=== PATIENT | female | born 1995 | race African-American/Black ===

== ENCOUNTER → 2020-09-12 | Outpatient (CLI) | payer OTHER | END | disposition home or self-care (01) | LOC: PRENATAL 10:57 | PROVIDERS: ATTEND Obstetrics & Gynecology Maternal & Fetal Medicine | DX: O35.0XX1 Maternal care for (suspected) central nervous system malformation in fetus, fetus 1 (principal); O35.3XX1 Maternal care for (suspected) damage to fetus from viral disease in mother, fetus 1; O98.512 Other viral diseases complicating pregnancy, second trimester; Z36.89 Encounter for other specified antenatal screening; Z3A.21 21 weeks gestation of pregnancy ==

== ENCOUNTER → 2020-12-25 | Outpatient (CLI) | payer OTHER | END | disposition home or self-care (01) | LOC: NST 17:08 | PROVIDERS: ATTEND Specialist | DX: Z34.83 Encounter for supervision of other normal pregnancy, third trimester (principal) ==

== ENCOUNTER 2021-01-25 12:45 | Inpatient (IN) | payer OTHER ==
[~2021-01-25] VITALS: Ht 149.9 cm; Wt 2.7 kg
== END 2021-01-28 12:34 | disposition home or self-care (01) | DRG 788 ==
LOC: OBS/DEL 12:45 → LDR 15:53 → O/R 01-26 00:06 → OB/GYN 01-26 10:55
PROVIDERS: ADMIT Specialist; ATTEND Specialist
PROC: 4A1HXFZ Monitoring of Products of Conception, Cardiac Rhythm, External Approach (ICD-10-PCS; 2021-01-25)
PROC: 10D00Z1 Extraction of Products of Conception, Low, Open Approach (ICD-10-PCS; principal; 2021-01-25 19:00)
DX: O65.1 Obstructed labor due to generally contracted pelvis (principal); Z53.29 Procedure and treatment not carried out because of patient's decision for other reasons; O82 Encounter for cesarean delivery without indication; Z37.0 Single live birth; Z3A.40 40 weeks gestation of pregnancy